=== PATIENT | male | born 1990 | race Caucasian/White ===

== ENCOUNTER 2018-03-11 00:45 | Emergency (ER) | payer OTHER ==
[2018-03-11 01:06] VITALS: BMI 32.1
[2018-03-11 01:19] VITALS: RESP 18; O2SAT 98
--- NOTE | 2018-03-11 01:36 | ED PDOC ---
HPI: General Adult Time Seen by Provider: 03/11/18 01:34 Chief Complaint (Nursing): Shortness Of Breath Chief Complaint (Provider): DIFFICULTY SLEEPING History Per: Patient (27 Y/O MALE WHO NOTES INCREASED NASAL CONGESTION AND DIFFICULTY SLEEPING X 3 DAYS. STATES HE WAS NOTED BY TO SNORE LOUDLY AND WAKE UP HIS CHILDREN. DENIES ANY CHEST PAIN. NOTES 2 BEERS DAILY THIS WEEK.) Past Medical History Reviewed: Historical Data, Nursing Documentation, Vital Signs Vital Signs: Last Vital Signs Temp 98.9 F 03/11/18 01:06 Pulse 87 03/11/18 01:06 Resp 18 03/11/18 01:06 BP 151/94 H 03/11/18 01:06 Pulse Ox 98 03/11/18 01:06 - Family History Family History: States: No Known Family Hx - Home Medications Home Medications: Ambulatory Orders Medication Instructions Recorded DiphenhydrAMINE [Benadryl] 25 mg PO DAILY PRN #10 cap 03/11/18 - Allergies Allergies/Adverse Reactions: Allergies Allergy/AdvReac Type Severity Reaction Status Date / Time No Known Allergies Allergy Verified 03/11/18 01:06 Review of Systems ROS Statement: Except As Marked, All Systems Reviewed And Found Negative Physical Exam - Reviewed Nursing Documentation Reviewed: Yes Vital Signs Reviewed: Yes - Physical Exam Appears: Positive for: Well, Non-toxic, No Acute Distress Head Exam: Positive for: ATRAUMATIC, NORMAL INSPECTION, NORMOCEPHALIC Skin: Positive for: Normal Color, Warm, DRY Eye Exam: Positive for: EOMI, Normal appearance, PERRL ENT: Positive for: Normal ENT Inspection, Nasal Congestion Neck: Positive for: Normal, Painless ROM Cardiovascular/Chest: Positive for: Regular Rate, Rhythm Respiratory: Positive for: CNT, Normal Breath Sounds Gastrointestinal/Abdominal: Positive for: Normal Exam, Soft Back: Positive for: Normal Inspection Extremity: Positive for: Normal ROM Neurologic/Psych: Positive for: Alert, Oriented - ECG O2 Sat by Pulse Oximetry: 98 Disposition - Clinical Impression Clinical Impression: Difficulty sleeping - Patient ED Disposition Is Patient to be Admitted: No - Disposition Referrals: Favio Hernandez MD [Staff Provider] - Disposition: Routine/Home Disposition Time: 01:37 Condition: FAIR Additional Instructions: YOU CAN TRY "LIV POT" FOR NASAL SALINE RINSE PLEASE PURCHASE DISTILLED WATER FOR USE WITH IT. Prescriptions: DiphenhydrAMINE [Benadryl] 25 mg PO DAILY PRN #10 cap PRN Reason: Nasal Congestion Instructions: What Is a Sleep Study?, Tips for Getting Better Sleep, Bedtime Struggles
[2018-03-11 02:07] VITALS: BP 129/62; PULSE 78; TEMP 98.8
== END 2018-03-11 01:40 | disposition home or self-care (01) ==
LOC: H.ER 00:45
DX: G47.00 Insomnia, unspecified (principal)